=== PATIENT | male | born 1965 | race Caucasian/White ===

== ENCOUNTER → 2016-09-15 | Outpatient (CLI) | payer BC, OTHER ==
[~2016-09-15] MED LIST: FEXO1TAB46 PO; LANS30CA63 PO; LPD600 PO; LSN/2025 PO; METF-384 PO; RIVA1TAB4 PO
[2016-09-15 17:36] LABS: BASO % 0.3 %; BASO ABS # 0.01 K/uL (0-0.2); COMPLETE YES; EOS % 7.3 %; HEMATOCRIT 35.9 % (42-52); IG% 0.3 %; LYMPH % 41.8 %; LYMPH ABS # 1.67 K/uL (1.2-3.4); MEAN CELL VOLUME 86.5 fL (80-100); MEAN CORPUSCULAR HEMOGLOBIN 30.6 pg (25-34); MEAN CORPUSCULAR HGB CONC 35.4 g/dl (32-36); MEAN PLATELET VOLUME 9.3 fL (7.4-10.4); MONO % 9.8 %; NEUT % 40.5 %; PLATELET COUNT 348 K/uL (130-400); RED BLOOD COUNT 4.15 M/uL (4.7-6.1)
[2016-09-16 06:55] LABS: ESTIMATED AVERAGE GLUCOSE 123 mg/dl; HA1C FLAG Normal (Normal)
== END | disposition home or self-care (01) ==
LOC: C.LABBFT 16:44
PROVIDERS: ATTEND Internal Medicine
DX: R73.03 Prediabetes (principal); D64.9 Anemia, unspecified

== ENCOUNTER → 2016-09-19 | Outpatient (CLI) | payer BC ==
[2016-09-23 21:34] LABS: IGA SERUM 211 mg/dL (81-463); TIS TRANS IGA 1 U/mL (<4)
== END | disposition home or self-care (01) ==
LOC: C.LABBFT 12:24
PROVIDERS: ATTEND Internal Medicine
DX: D64.9 Anemia, unspecified (principal)

== ENCOUNTER → 2017-03-24 | Outpatient (CLI) | payer BC ==
[~2017-03-24] MED LIST changes: +METO25TA3 PO
[2017-03-24 12:18] LABS: BASO % 0.5 %; BASO ABS # 0.02 K/uL (0-0.2); COMPLETE YES; EOS % 6.5 %; HEMATOCRIT 36.3 % (42-52); IG% 0.5 %; LYMPH % 42.2 %; LYMPH ABS # 1.68 K/uL (1.2-3.4); MEAN CELL VOLUME 89.6 fL (80-100); MEAN CORPUSCULAR HEMOGLOBIN 31.1 pg (25-34); MEAN CORPUSCULAR HGB CONC 34.7 g/dl (32-36); MEAN PLATELET VOLUME 9.6 fL (7.4-10.4); MONO % 12.3 %; PLATELET COUNT 304 K/uL (130-400); RED BLOOD COUNT 4.05 M/uL (4.7-6.1); WHITE BLOOD COUNT 3.98 K/uL (4.8-10.8)
[2017-03-24 12:28] LABS: URINE APPEARANCE CLEAR (CLEAR); URINE BILIRUBIN NEG (NEG); URINE COLOR YELLOW; URINE NITRITE NEG (NEG); UROBILINOGEN NEG (NEG); ZZUR CULT IF INDIC CLEAN CATCH NO
[2017-03-24 12:34] LABS: MANUAL MICROSCOPIC REQUIRED? NO; REVIEW REQ? NO
[2017-03-24 12:58] LABS: ALT/SGPT 26 U/L (12-78); AST/SGOT 15 U/L (15-37); BLOOD UREA NITROGEN 17 mg/dl (7-18); BUN/CREATININE RATIO 18.7 (10-20); CALCIUM 8.7 mg/dl (8.5-10.1); CARBON DIOXIDE 28 mmol/L (21-32); CHLORIDE 105 mmol/L (98-107); CREATININE 0.93 mg/dl (0.60-1.40); GLUCOSE 102 mg/dl (70-99); SODIUM 140 mmol/L (136-145)
[2017-03-24 13:03] LABS: ALKALINE PHOSPHATASE 38 U/L (45-117); CHOLESTEROL 150 mg/dl (0-200); CHOLESTEROL/HDL RATIO 4.5; HDL CHOLESTEROL 33 mg/dl; LDL CHOLESTEROL CALCULATED 75 mg/dl; TRIGLYCERIDES 208 mg/dl (0-150); VERY LOW DENSITY LIPOPROT CALC 42 mg/dl
[2017-03-24 13:08] LABS: ESTIMATED AVERAGE GLUCOSE 123 mg/dl; HA1C FLAG Normal (Normal)
== END | disposition home or self-care (01) ==
LOC: C.LABBFT 08:11
PROVIDERS: ATTEND Internal Medicine
DX: R73.03 Prediabetes (principal); D64.9 Anemia, unspecified; Z12.5 Encounter for screening for malignant neoplasm of prostate; E78.5 Hyperlipidemia, unspecified; I48.92 Unspecified atrial flutter

== ENCOUNTER → 2017-05-06 | Day surgery (SDC) | payer BC ==
[2017-04-28 09:27] VITALS: BMI 33.0
[~2017-05-06] VITALS: Ht 177.8 cm; Wt 104.5 kg
[~2017-05-06] MED LIST changes: +LIDOCAINE HCL 2% 2 ML VIAL (20MG/ML) ONE; +MIDAZOLAM HCL 1 MG/ML 2ML VIAL ONE; +ONDANSETRON INJ 2 MG/ML 2 ML VIAL ONE; +PROPOFOL IV EMULSION 10 MG/ML 20 ML VIAL IV ONE; +SODIUM CHLORIDE 0.9% 500ML 500 ML IV ONE
[2017-05-06 14:07] VITALS: Ht 177.8 cm; Wt 104.5 kg
--- NOTE | 2017-05-06 14:57 | Endo History and Physical ---
History & Physical Date of Service: May 06, 2017. Chief Complaint: BARRETTS ESOPHAGUS Referring Physician: DR. 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 Past Medical History Diabetes, Arthritis, Reflux, Hypertension, Other Past Surgical History Hx Cardiac Surgery: No Hx Internal Defibrillator: No Hx Pacemaker: No Hx Abdominal Surgery: Yes (UMBILICAL HERNIA REPAIR) Hx of Implantable Prosthesis: No Hx Post-Op Nausea and Vomiting: No Hx Cancer Surgery: No Hx Thoracic Surgery: No Hx Orthopedic: No Hx Urinary Tract Surgery: No Family History Colon CA Social History Smoking Status: Never Smoker Hx Substance Use: No Hx Alcohol Use: No Allergies Coded Allergies: No Known Allergies (Verified , 04/28/17) Current Medications Reported Home Medications Medications Dose Route/Sig Max Daily Dose Days Date Category Xarelto (Rivaroxaban) 20 Mg Tab 20 Mg PO QAM 04/28/17 Reported Toprol-Xl (Metoprolol Succinate) 25 Mg Tabcr 25 Mg PO QAM 04/28/17 Reported Prevacid (Lansoprazole) 30 Mg Cap 30 Mg PO QAM 04/12/14 Reported Gemfibrozil 600 Mg Tab 600 Mg PO BID 04/12/14 Reported Lisinopril/Hctz 20/25 Mg (HCTZ/Lisinopril) 1 Ea Tab 1 Tab PO QAM 04/12/14 Reported Glucophage (Metformin Hcl) 1,000 Mg Tab 1,000 Mg PO Q12 08/09/13 Reported Halley (Fexofenadine Hcl) 180 Mg Tab 180 Mg PO DAILY PRN 08/09/13 Reported Vital Signs Weight (Kilograms): 104.55 Height (Feet): 5 Height (Inches): 10 Date Time Temp Pulse Resp B/P (MAP) Pulse Ox O2 Delivery O2 Flow Rate FiO2 05/06/17 14:09 36.7 60 20 134/76 (95) 97 Room Air Physical Exam General Appearance: WD/WN, no apparent distress Respiratory/Chest: Auscultation: breath sounds normal Cardiovascular: Heart Auscultation: RRR Abdomen: Bowel Sounds: normal Inspection & Palpation: soft, non-distended, no tenderness, guarding & rebound Assessment and Plan Assessment: 51 yo CM who presents for 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 Plan: Proceed with EGD.
--- NOTE | 2017-05-06 15:19 | GI REPORT ---
Procedure Date: 05/06/2017 2:37 PM Procedure: Upper GI endoscopy Indications: Follow-up of Vicente's esophagus Medicines: Sedation Required Anesthesia Staff Assistance, Monitored Anesthesia Care Complications: No immediate complications. Estimated Blood Loss: Estimated blood loss: none. Procedure: Pre-Anesthesia Assessment: - Prior to the procedure, a History and Physical was performed, and patient medications and allergies were reviewed. The patient's tolerance of previous anesthesia was also reviewed. The risks and benefits of the procedure and the sedation options and risks were discussed with the patient. All questions were answered, and informed consent was obtained. Prior Anticoagulants: The patient has taken Xarelto (rivaroxaban), last dose was 3 days prior to procedure. ASA Grade Assessment: III - A patient with severe systemic disease. After reviewing the risks and benefits, the patient was deemed in satisfactory condition to undergo the procedure. After obtaining informed consent, the endoscope was passed under direct vision. Throughout the procedure, the patient's blood pressure, pulse, and oxygen saturations were monitored continuously. The scope was introduced through the mouth, and advanced to the second part of duodenum. The upper GI endoscopy was accomplished without difficulty. The patient tolerated the procedure well. Findings: There were esophageal mucosal changes consistent with short-segment Vicente's esophagus present in the lower third of the esophagus. The maximum longitudinal extent of these mucosal changes was 1 cm in length. Mucosa was biopsied with a cold forceps for histology. One specimen bottle was sent to pathology. A small hiatus hernia was present. The examined duodenum was normal. Impression: - Esophageal mucosal changes consistent with short-segment Vicente's esophagus. Biopsied. - Small hiatus hernia. - Normal examined duodenum. Recommendation: - Resume previous diet. - Continue present medications. - Await pathology results. - Return to primary care physician as previously scheduled. Alvarado Dang DO 05/06/2017 3:19:09 PM This report has been signed electronically. Note Initiated On: 05/06/2017 2:37 PM I attest to the content of the Intraoperative Record and orders documented therein, exceptions below
--- NOTE | 2017-05-06 15:20 | Discharge Instructions ---
Endoscopy Patient Instructions Date / Procedure(s) Performed May 06, 2017. EGD Allergy Information Coded Allergies: No Known Allergies (Verified , 04/28/17) Discharge Date / Findings May 06, 2017. Vicente's esophagus Hiatal hernia Medication Instructions Stopped Medication(s): MET NISREENFORMJYOTSNA OK to resume all medications today as prescribed Reported Home Medications Medications Dose Route/Sig Max Daily Dose Days Date Category Xarelto (Rivaroxaban) 20 Mg Tab 20 Mg PO QAM 04/28/17 Reported Toprol-Xl (Metoprolol Succinate) 25 Mg Tabcr 25 Mg PO QAM 04/28/17 Reported Prevacid (Lansoprazole) 30 Mg Cap 30 Mg PO QAM 04/12/14 Reported Gemfibrozil 600 Mg Tab 600 Mg PO BID 04/12/14 Reported Lisinopril/Hctz 20/25 Mg (HCTZ/Lisinopril) 1 Ea Tab 1 Tab PO QAM 04/12/14 Reported Glucophage (Metformin Hcl) 1,000 Mg Tab 1,000 Mg PO Q12 08/09/13 Reported Halley (Fexofenadine Hcl) 180 Mg Tab 180 Mg PO DAILY PRN 08/09/13 Reported Provider Instructions Activity Restrictions - No exercising or heavy lifting for 24 hours. - Do not drink alcohol the day of the procedure. - Do not drive a car or operate machinery until the day after the procedure. - Do not make any important decisions or sign important papers in 24 hours after the procedure. Following Day: - Return to full activity which may include returning to work/school. Diet Start your diet with liquids and light foods (jello, soup, juice, toast). Then eat your usual diet if not nauseated. Treatment For Common After Affects For mild abdominal pain, bloating, or excessive gas: - Rest - Eat lightly - Lie on right side Follow-Up Information Follow-up with DR. GILMAR LAZO as scheduled Anesthesia Information What You Should Know You have had a procedure that required some medicine to reduce anxiety and discomfort. This treatment is called moderate sedation. After receiving the treatment, you may be sleepy, but you will be able to breathe on your own. The effects of the treatment may last for several hours. Follow these instructions along with Activity/Diet recommendations noted above: * Do NOT do anything where dizziness or clumsiness would be dangerous. * Rest quietly at home today, then you can be up and about tomorrow. * Have a responsible person stay with you the rest of today. * You may have had an I.V. today. If so, you may take the dressing off later today. Recommendations Call your doctor if: * Trouble breathing * Continuous vomiting for more than 24 hours * Temperature above 101 degrees * Severe abdominal pain or bloating * Pain not relieved by pain medicine ordered * There is increased drainage or redness from any incision * A large amount of rectal bleeding greater than 2-3 tablespoons. (If you had a polyp/s removed or have hemorrhoids, a small amount of blood - from the rectum is to be expected.) * You have any unanswered questions or concerns. IN THE EVENT OF A SERIOUS EMERGENCY, GO TO THE NEAREST EMERGENCY ROOM Your discharge instructions were prepared by provider Alvarado Dang. Patient Instructions Signature Page Reynold White Patient (or Guardian) Signature/Date: I have read and understand the instructions given to me by my caregivers. Caregiver/RN/Doctor Signature/Date: The above-named patient and/or guardian has received patient instructions on this date. + Original Patient Signature Page (only) stays with chart. Please make copy for patient.
[2017-05-06 15:50] VITALS: BP 122/69; PULSE 63; O2SAT 94
--- NOTE | 2017-05-06 15:53 | Anesthesiology Progress Note ---
Anesthesia Post Op Note Date & Time May 06, 2017 at 15:52 Vital Signs Pain Intensity: 0 Vital Signs Past 12 Hours Date Time Temp Pulse Resp B/P (MAP) Pulse Ox O2 Delivery O2 Flow Rate FiO2 05/06/17 15:50 63 20 122/69 (86) 94 Room Air 05/06/17 15:39 63 20 143/68 (93) 94 Room Air 05/06/17 15:28 67 20 117/70 (86) 94 Room Air 05/06/17 14:09 36.7 60 20 134/76 (95) 97 Room Air Notes Mental Status: alert / awake / arousable, participated in evaluation Pt Amnestic to Procedure: Yes Nausea / Vomiting: adequately controlled Pain: adequately controlled Airway Patency, RR, SpO2: stable & adequate BP & HR: stable & adequate Hydration State: stable & adequate Anesthetic Complications: no major complications apparent
== END | disposition home or self-care (01) ==
LOC: C.GI 13:27
PROVIDERS: ATTEND Internal Medicine
DX: K22.70 Barrett's esophagus without dysplasia (principal); K44.9 Diaphragmatic hernia without obstruction or gangrene; K21.9 Gastro-esophageal reflux disease without esophagitis; I10 Essential (primary) hypertension; E11.9 Type 2 diabetes mellitus without complications; Z80.0 Family history of malignant neoplasm of digestive organs; Z79.01 Long term (current) use of anticoagulants; Z79.84 Long term (current) use of oral hypoglycemic drugs; Z79.899 Other long term (current) drug therapy

== ENCOUNTER → 2017-09-28 | Outpatient (CLI) | payer OTHER ==
[~2017-09-28] MED LIST changes: -LIDOCAINE HCL 2% 2 ML VIAL (20MG/ML) ONE; -MIDAZOLAM HCL 1 MG/ML 2ML VIAL ONE; -ONDANSETRON INJ 2 MG/ML 2 ML VIAL ONE; -PROPOFOL IV EMULSION 10 MG/ML 20 ML VIAL IV ONE; -SODIUM CHLORIDE 0.9% 500ML 500 ML IV ONE
[2017-09-28 12:27] LABS: BASO % 0.8 %; BASO ABS # 0.03 K/uL (0-0.2); EOS % 4.1 %; EOS ABS # 0.16 K/uL (0-0.5); HEMATOCRIT 38.8 % (42-52); HEMOGLOBIN 13.5 g/dL (14.0-18.0); IG# 0.01 K/uL (0.00-0.02); LYMPH % 41.5 %; LYMPH ABS # 1.62 K/uL (1.2-3.4); MEAN CELL VOLUME 87.4 fL (80-100); MEAN CORPUSCULAR HEMOGLOBIN 30.4 pg (25-34); MEAN CORPUSCULAR HGB CONC 34.8 g/dl (32-36); MEAN PLATELET VOLUME 9.5 fL (7.4-10.4); MONO ABS # 0.43 K/uL (0.11-0.59); NEUT % 42.3 %; NEUT ABS # 1.65 K/uL (1.4-6.5); PLATELET COUNT 351 K/uL (130-400); RED CELL DISTRIBUTION WIDTH CV 12.3 % (11.5-14.5); RED CELL DISTRIBUTION WIDTH SD 39.7 fL (36.4-46.3)
[2017-09-28 13:14] LABS: HEMOGLOBIN A1C 6.3 % (4.5-5.6)
== END | disposition home or self-care (01) ==
LOC: C.LABBFT 09:43
PROVIDERS: ATTEND Internal Medicine
DX: D72.819 Decreased white blood cell count, unspecified (principal); R73.03 Prediabetes

== ENCOUNTER 2021-01-23 08:37 | Observation (INO) ==
--- NOTE | 2021-01-23 09:08 | Emergency Department Note ---
ED Visit Note This patient was seen in concert with Dr. Man and we discussed and agreed upon the history, physical, assessment and plan. See attending's note for details. Resident Activity Tracking Resident Involvement: Resident Care Provided Care Provided: Adult ED
[2021-01-23] MEDS ORDERED: SODIUM CHLORIDE 0.9% 500 ML IV STA (09:11)
[2021-01-23 09:14] LABS: Basophils # (auto) 0.02 K/uL (0-0.2); Basophils % (auto) 0.3 %; Eosinophils # (auto) 0.19 K/uL (0-0.5); Eosinophils % (auto) 2.7 %; Hematocrit (blood only) 38.2 % (42-52); Immature Granulocytes # (auto) 0.02 K/uL (0.00-0.02); Immature Granulocytes % (auto) 0.3 %; Lymphocytes # (auto) 1.74 K/uL (1.2-3.4); Lymphocytes % (auto) 24.8 %; Mean Corpuscular Hemoglobin 30.4 pg (25-34); Mean Corpuscular Volume 89.5 fL (80-100); Mean Platelet Volume 9.1 fL (7.4-10.4); Monocytes # (auto) 0.76 K/uL (0.11-0.59); Monocytes % (auto) 10.8 %; Neutrophils % (auto) 61.1 %; Platelet Count 240 K/uL (130-400); RDW Coefficient of Variation 13.2 % (11.5-14.5); RDW Standard Deviation 42.5 fL (36.4-46.3); Red Blood Count 4.27 M/uL (4.7-6.1); White Blood Count 7.03 K/uL (4.8-10.8)
[2021-01-23 09:33] LABS: Albumin Level 4.1 gm/dl (3.4-5.0); BUN Creatinine Ratio 20.7 (10-20); Calcium 8.8 mg/dl (8.5-10.1); Creatinine Clr Calc Pharmacy 106.4 ml/min; Est GFR (African American) 102.6 ml/min; Est GFR (Non-African American) 88.5 ml/min; Magnesium 1.9 mg/dl (1.8-2.4); Potassium 3.5 mmol/L (3.5-5.1)
[2021-01-23] MEDS ORDERED: POTASSIUM CHLORIDE CRTAB 20 MEQ TABCR PO STA (09:37)
--- NOTE | 2021-01-23 09:37 | XRay Report ---
XR chest 1V portable HISTORY: 55 years-old Male Chest Pain acute atypical chest pain COMPARISON: Chest radiograph 12/13/2019, chest CT 05/05/2016 TECHNIQUE: Portable AP view of the chest FINDINGS: Cardiomediastinal and hilar silhouettes are within normal limits. No pneumothorax, pleural effusion, airspace consolidation or overt pulmonary edema. Degenerative changes of the shoulders and spine. IMPRESSION: No acute process. ACT 112: Negative or not required by law. The above report was generated using voice recognition software. It may contain grammatical, syntax o r spelling errors. Electronically signed by: Reza Caro M.D. 01/23/2021 9:36 AM
[2021-01-23 09:55] LABS: Albumin Globulin Ratio 1.1 (0.9-2); Bilirubin,Total 0.5 mg/dl (0.2-1); Globulin 3.7 gm/dl (2.5-4.0); Thyroid Stimulating Hormone 5.36 uIu/ml (0.300-4.500); Total Protein 7.8 gm/dl (6.4-8.2); Troponin I 0.051 ng/ml (0-0.045)
--- NOTE | 2021-01-23 10:28 | Emergency Department Note ---
History of Present Illness General Chief complaint: Chest Pain Stated complaint: CHEST PAIN,HEADAHCE,NAUSEA,HX OF AFIB Time Seen by Provider: 01/23/21 08:52 Source: patient Mode of arrival: ambulatory Limitations: no limitations History of Present Illness Provider complaint: Chest pain Maximum Pain Intensity: 4 This is a 55-year-old male who presents to the ED with a chief complaint of what he believes was a episode of atrial fibrillation last night while he was at work. The patient has a history of paroxysmal atrial flutter. He is on Xarelto chronically. The patient states that last night he was at work and he felt dizzy. He states that his heart was pounding and racing. He felt a little short of breath and chest pain at that time. The patient states that he was mopping a floor at that time but that occurred. He sat down and rested. He states that the symptoms lasted for about 2 hours and then resolved. The patient states that he felt a little dizzy and nauseated this morning when he awoke. He states that he had to fix the tire of his 's car because she had a flat tire and while he was doing this he developed some chest discomfort and nausea. He decided to come in for evaluation. This is since resolved. Home Medications Medication Instructions Recorded Confirmed Type fexofenadine 180 mg tablet 180 mg PO DAILY PRN #90 tab 02/10/19 01/23/21 History rivaroxaban 20 mg tablet 20 mg PO QAM #90 tab 04/23/20 01/23/21 Rx blood sugar diagnostic #100 ea 08/28/20 01/23/21 Rx blood-glucose meter #1 ea 08/28/20 01/23/21 Rx dapagliflozin 10 mg tablet 10 mg PO DAILY #30 tab 08/28/20 01/23/21 Rx lancets 30 gauge #100 ea 08/28/20 01/23/21 Rx rosuvastatin 20 mg tablet 20 mg PO DAILY #30 tab 08/28/20 01/23/21 Rx metformin 1,000 mg tablet 1,000 mg PO BID #180 tab 09/10/20 01/23/21 Rx metoprolol succinate 25 mg 25 mg PO QAM #90 tab 09/10/20 01/23/21 Rx tablet,extended release 24 hr lisinopril 20 1 tab PO QAM #90 tab 10/18/20 01/23/21 Rx mg-hydrochlorothiazide 25 mg tablet albuterol sulfate 90 mcg/actuation 2 puff INH QID PRN #8.5 g 11/12/20 01/23/21 Rx aerosol inhaler tamsulosin 0.4 mg capsule 0.4 mg PO QAM #90 cap 11/14/20 01/23/21 Rx lansoprazole 30 mg capsule,delayed 30 mg PO QAM #90 cap 11/16/20 01/23/21 Rx release icosapent ethyl 1 gram capsule 2 g PO BID #120 cap 12/05/20 01/23/21 Rx Allergies Allergy/AdvReac Type Severity Reaction Status Date / Time No Known Allergies Allergy Unknown Verified 08/28/20 10:01 Past Med/Surg History Medical History Anticoagulant long-term use Atrial flutter F/U DR DELGADO Barretts esophagus Diabetes Gastroesophageal reflux disease Hiatal hernia Hyperlipidemia Hypertension Leukopenia Mild sleep apnea CPAP Pre-diabetes Temporomandibular joint disorder CLICKS ONE SIDE Surgical History H/O umbilical hernia repair H/O vasectomy History of colonoscopy History of esophagogastroduodenoscopy (EGD) History of myringotomy History of tonsillectomy History of wisdom tooth extraction Family History Father Prostate cancer Colorectal cancer Uncle Prostate cancer Myocardial infarction Colorectal cancer Brother Myocardial infarction Hx of CABG Mother Healthy adult Grandmother (Paternal) Family history of diabetes mellitus Other No family history of adverse response to anesthesia Denies family history of Ovarian cancer Coronary heart disease Breast cancer Social History Smoking Status: Heavy tobacco smoker Tobacco Type: Smokeless Tobacco (Dip or Chew) Second Hand Exposure: Yes (ON OCC); Hx Alcohol Use: Yes Alcohol type: beer Alcohol Intake Frequency Comment: Occasional social alcohol. 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 Feels Safe at Home: Yes Childhood Exposure to Second-Hand Smoke: No caffeine: Yes Dental Care, Regularly: Yes Physical Activity Frequency: 1-2 Times per Week Seatbelt Use: always Sunscreen Use: Yes Assistive Devices: CPAP and Glasses Review of Systems A total of 10 systems reviewed and were otherwise negative Physical Exam Vital Signs Vital Signs - 24 hr 01/23/21 08:40 01/23/21 08:53 01/23/21 08:58 Temperature 36.5 C Temperature Source Temporal Artery Scan Pulse Rate 81 79 75 Respiratory Rate 20 18 25 H Blood Pressure 127/91 120/77 Blood Pressure Mean 103 91 Blood Pressure Position Sitting Pulse Oximetry 98 Oxygen Delivery Method Room Air Sepsis Recent Fever Within 48 Hours No Sepsis New/Unexplained Change in Mental Status N/A Sepsis Action Taken by Nursing No Action Required 01/23/21 09:00 01/23/21 09:01 01/23/21 09:30 Temperature Temperature Source Pulse Rate 77 75 73 Respiratory Rate 15 20 19 Blood Pressure 137/87 112/86 Blood Pressure Mean 103 94 Blood Pressure Position Pulse Oximetry Oxygen Delivery Method Sepsis Recent Fever Within 48 Hours Sepsis New/Unexplained Change in Mental Status Sepsis Action Taken by Nursing CONSTITUTIONAL/VITAL SIGNS: Reviewed / noted above. GENERAL: Non-toxic in appearance. INTEGUMENTARY: Warm, dry, and [place]. HEAD: Normocephalic. EYES: without scleral icterus or trauma. ENT/OROPHARYNX: clear and moist. LYMPHADENOPATHY/NECK: Is supple without lymphadenopathy or meningismus. RESPIRATORY: Lungs clear and equal. CARDIOVASCULAR: Regular rate and rhythm. GI/ABDOMEN: Soft and nontender. No organomegaly or pulsatile mass. No rebound or guarding. Normal bowel sounds. EXTREMITIES: Warm and well perfused. BACK: No CVA tenderness. NEUROLOGICAL: Intact without focal deficits. PSYCHIATRIC: normal affect. MUSCULOSKELETAL: Normally developed with good muscle tone. TRIAGE NURSING DOCUMENTATION REVIEWED. Course Administered Medications Discontinued Medications Sodium Chloride (Nss) 500 mls @ 999 mls/hr IV .Q31M STA Stop: 01/23/21 09:41 Last Admin: 01/23/21 10:11 Dose: 999 mls/hr Documented by: [id number] Potassium Chloride (Potassium Chloride Crtab 20 Meq Tabcr) 40 meq PO NOW STA Stop: 07/07/21 09:38 Last Admin: 01/23/21 10:08 Dose: 40 meq Documented by: [id number] Medical Decision Making Differential Diagnosis The differential that was considered includes acute myocardial infarction, acute coronary syndrome, myocarditis, pericarditis, pericardial effusions /tamponade, esophageal perforation, thoracic aortic dissection, pulmonary embolism, pneumonia, pneumothorax, pancreatitis, shingles, acute cholecystitis, perforated abdominal viscus. Medical Records Attestation: I reviewed the patient's medical records. Home Medications Current Medication List: was personally reviewed by me Laboratory Data Attestation: I reviewed the patient's lab results. Result diagrams: 01/23/21 09:00 01/23/21 09:00 Lab Results 01/23/21 01/23/21 Range/Units 09:00 09:00 WBC 7.03 (4.8-10.8) K/uL RBC 4.27 L (4.7-6.1) M/uL Hgb 13.0 L (14.0-18.0) g/dL Hct 38.2 L (42-52) % MCV 89.5 (80-100) fL MCH 30.4 (25-34) pg MCHC 34.0 (32-36) g/dL RDW Std Deviation 42.5 (36.4-46.3) fL RDW Coeff of Bhanu 13.2 (11.5-14.5) % Plt Count 240 (130-400) K/uL MPV 9.1 (7.4-10.4) fL Immature Gran % (Auto) 0.3 % Neut % (Auto) 61.1 % Lymph % (Auto) 24.8 % [place] % (Auto) 10.8 % Eos % (Auto) 2.7 % Baso % (Auto) 0.3 % Neut # (Auto) 4.30 (1.4-6.5) K/uL Lymph # (Auto) 1.74 (1.2-3.4) K/uL [place] # (Auto) 0.76 H (0.11-0.59) K/uL Eos # (Auto) 0.19 (0-0.5) K/uL Baso # (Auto) 0.02 (0-0.2) K/uL Immature Gran # (Auto) 0.02 (0.00-0.02) K/uL Sodium 133 L (136-145) mmol/L Potassium 3.5 (3.5-5.1) mmol/L Chloride 99 (98-107) mmol/L Carbon Dioxide 27 (21-32) mmol/L Anion Gap 7.0 (3-11) BUN 20 H (7-18) mg/dl Creatinine 0.95 (0.6-1.4) mg/dl Est Cr Clr Drug Dosing 106.4 ml/min Est GFR ( Amer) 102.6 ml/min Est GFR (Non-Af Amer) 88.5 ml/min BUN/Creatinine Ratio 20.7 H (10-20) Glucose 114 H (70-99) mg/dl Calcium 8.8 (8.5-10.1) mg/dl Magnesium 1.9 (1.8-2.4) mg/dl Total Bilirubin 0.5 (0.2-1) mg/dl AST 31 (15-37) U/L ALT 60 (12-78) U/L Alkaline Phosphatase 45 (45-117) U/L Troponin I 0.051 H* (0-0.045) ng/ml Total Protein 7.8 (6.4-8.2) gm/dl Albumin 4.1 (3.4-5.0) gm/dl Globulin 3.7 (2.5-4.0) gm/dl Albumin/Globulin Ratio 1.1 (0.9-2) Lipase 146 (73-393) U/L TSH 5.360 H (0.300-4.500) uIu/ml Imaging Data Radiologist's Impression: Chest X-Ray 01/23/21 09:11 XR chest 1V portable HISTORY: 55 years-old Male Chest Pain acute atypical chest pain COMPARISON: Chest radiograph 12/13/2019, chest CT 05/05/2016 TECHNIQUE: Portable AP view of the chest FINDINGS: Cardiomediastinal and hilar silhouettes are within normal limits. No pneumothorax, pleural effusion, airspace consolidation or overt pulmonary edema. Degenerative changes of the shoulders and spine. IMPRESSION: No acute process. ACT 112: Negative or not required by law. The above report was generated using voice recognition software. It may contain grammatical, syntax or spelling errors. Electronically signed by: Reza Caro M.D. 01/23/2021 9:36 AM ECG Data Attestation: I personally reviewed and interpreted this ECG as follows: Indication: + chest pain Rate (beats per minute): 74 ECG Intervals/blocks: + Normal QT-c ECG ST segments: no ST elevation ECG Findings: no PVCs MDM Narrative This is a 55-year-old male who presents with some chest pain that started this morning while he was changing a tire. He also reports that he had an episode of A. fib last night that lasted for couple of hours. He states that his heart was pounding and racing last night. His CBC is unremarkable. His troponin is elevated at 0.051. EKG shows a normal sinus rhythm at a rate of 74 without ischemic changes. Chemistry panel was unremarkable. Chest x-ray did not show acute process. The patient was told the results of the test. He is chronically on Xarelto. He will require further evaluation and care in the hospital. Impression & Plan Non-ST elevation (NSTEMI) myocardial infarction, Episodic atrial fibrillation Discharge Plan Visit Data Chief Complaint: Chest Pain Stated Complaint: CHEST PAIN,HEADAHCE,NAUSEA,HX OF AFIB ED Provider: Jace Nguyen ED Midlevel Provider: Selin Rawls Discharge Problem: Non-ST elevation (NSTEMI) myocardial infarction, Episodic atrial fibrillation Patient Disposition: Being Evaluated by Hospitalist Forms Stand Alone Forms: My [facility] Prescriptions Prescriptions: No Action Xarelto 20 mg tablet 20 mg PO QAM Qty: 90 RF: 3 (DME) OneTouch Verio test strips Strip See Rx Instructions .ROUTE .MEDSUPPLY Qty: 100 RF: 3 (DME) lancets [OneTouch Delica Plus Lancet] 30 gauge misc See Rx Instructions .ROUTE .MEDSUPPLY Qty: 100 RF: 3 metformin 1,000 mg tablet 1,000 mg PO BID Qty: 180 RF: 3 metoprolol succinate 25 mg tablet extended release 24 hr 25 mg PO QAM Qty: 90 RF: 3 lisinopril-hydrochlorothiazide 20-25 mg tablet 1 tab PO QAM Qty: 90 RF: 3 albuterol sulfate [Proventil HFA] 90 mcg/actuation HFA aerosol inhaler 2 puff INH QID PRN (Reason: shortness of breath or wheezing) Qty: 8.5 RF: 1 tamsulosin 0.4 mg capsule 0.4 mg PO QAM Qty: 90 RF: 0 lansoprazole 30 mg capsule,delayed release(DR/EC) 30 mg PO QAM Qty: 90 RF: 3 icosapent ethyl [Vascepa] 1 gram capsule 2 g PO BID Qty: 120 RF: 11 fexofenadine 180 mg tablet 180 mg PO DAILY PRN (Reason: Allergy Symptoms) Qty: 90 RF: 0 Farxiga 10 mg tablet 10 mg PO DAILY Qty: 30 RF: 11 (DME) blood-glucose meter [L-3 GCSuch Verio Flex meter] Misc See Rx Instructions .ROUTE .MEDSUPPLY Qty: 1 RF: 0 rosuvastatin 20 mg tablet 20 mg PO DAILY Qty: 30 RF: 11 Referrals Referrals: Luis Holland MD [Primary Care Provider] -
--- NOTE | 2021-01-23 10:59 | History & Physical Report ---
Date of Service January 23, 2021 Assessment & Plan (1) Non-ST elevation (NSTEMI) myocardial infarction: 55 y/o M Hx HTN, HLD, DM II, GERD, BPH, CAROLINE, PAF. 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 He believed this to be an episode of atrial flutter which he states he has not had since 2014. He waited it out and it returned home. This AM he was changing a tire on his car and developed CP and nausea, but without palpitations. He presented to the ER therefore. On arrival, he is in a sinus rhythm. There was no evidence of ischemia on his EKG. His initial troponin did however return +. He is asymptomatic on admission and labs are otherwise at baseline. 1) NSTEMI - may be due to demand as he describes a 1-2 hour episode of fib or flutter accompanying his CP he prior rosanne, although he did not have palpitations with CP this AM. We have ordered an echo and requested a cardiology consult. Serial trops pending. ASA, statin provided. He is anticoagulated with Xarelto but we will hold additional dosing as he may need Heparin or Lovenox for a cath. I would note that he is prescribed albuterol and fexofenadine and would try to hold off on either for now. 2) Atrial flutter or fib - sinus on arrival - anticoagulated. EKG is borderline tachy and pressure is normal so I have increased his beta asya to BID pending a cardiology consult. 3) DM - sliding scale 4) HTN/HLD - Cont metoprolol, lisinopril/HCTZ, Crestor 5) BPH - cont Flomax 6) CAROLINE - CPAP 7) GERD - PPi Full code Xarelto prophylaxis Total time for this admit including review of labs, meds, EKG, records - discussion with pt and ER attending - 36 min (2) Dyslipidemia: (3) Paroxysmal atrial flutter: (4) Diabetes: (5) Hyperlipidemia: (6) Hypertension: (7) Mild sleep apnea: Admission and Anticipated Discharge Date Admission Date: 01/23/21 Anticipated date of discharge: 01/24/21 History of Present Illness Chief Complaint: Chest pain and palpitations Primary Care Provider: Scooter Holland MD 55 y/o M Hx HTN, HLD, DM II, GERD, BPH, CAROLINE, PAF. 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 He believed this to be an episode of atrial flutter which he states he has not had since 2014. He waited it out and it returned home. This AM he was changing a tire on his car and developed CP and nausea, but without palpitations. He presented to the ER therefore. On arrival, he is in a sinus rhythm. There was no evidence of ischemia on his EKG. His initial troponin did however return +. He is asymptomatic on admission and labs are otherwise at baseline. PMH: 1) HTN 2) HLD 3) DM II 4) GERD 5) BPH 6) Mild anemia - baseline Hb 13 7) Paroxysmal flutter - takes Xarelto 8) Seasonal airway reactive disease 9) Obese 10) CAROLINE - CPAP Surgical: No recent surgery Social: Occasional ETOH, chews tobacco. 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 Family: Father alive - history of colon and prostate CA, history of CAD Mother alive - healthy Allergies Allergy/AdvReac Type Severity Reaction Status Date / Time No Known Allergies Allergy Unknown Verified 08/28/20 10:01 Home Medications Medication Instructions Recorded Confirmed Type fexofenadine 180 mg tablet 180 mg PO DAILY PRN #90 tab 02/10/19 01/23/21 History rivaroxaban 20 mg tablet 20 mg PO QAM #90 tab 04/23/20 01/23/21 Rx blood sugar diagnostic #100 ea 08/28/20 01/23/21 Rx blood-glucose meter #1 ea 08/28/20 01/23/21 Rx dapagliflozin 10 mg tablet 10 mg PO DAILY #30 tab 08/28/20 01/23/21 Rx lancets 30 gauge #100 ea 08/28/20 01/23/21 Rx rosuvastatin 20 mg tablet 20 mg PO DAILY #30 tab 08/28/20 01/23/21 Rx metformin 1,000 mg tablet 1,000 mg PO BID #180 tab 09/10/20 01/23/21 Rx metoprolol succinate 25 mg 25 mg PO QAM #90 tab 09/10/20 01/23/21 Rx tablet,extended release 24 hr lisinopril 20 1 tab PO QAM #90 tab 10/18/20 01/23/21 Rx mg-hydrochlorothiazide 25 mg tablet albuterol sulfate 90 mcg/actuation 2 puff INH QID PRN #8.5 g 11/12/20 01/23/21 Rx aerosol inhaler tamsulosin 0.4 mg capsule 0.4 mg PO QAM #90 cap 11/14/20 01/23/21 Rx lansoprazole 30 mg capsule,delayed 30 mg PO QAM #90 cap 11/16/20 01/23/21 Rx release icosapent ethyl 1 gram capsule 2 g PO BID #120 cap 12/05/20 01/23/21 Rx Past Med/Surg History Medical History Anticoagulant long-term use Atrial flutter F/U DR DELGADO Barretts esophagus Diabetes Gastroesophageal reflux disease Hiatal hernia Hyperlipidemia Hypertension Leukopenia Mild sleep apnea CPAP Pre-diabetes Temporomandibular joint disorder CLICKS ONE SIDE Surgical History H/O umbilical hernia repair H/O vasectomy History of colonoscopy History of esophagogastroduodenoscopy (EGD) History of myringotomy History of tonsillectomy History of wisdom tooth extraction Family History Father Prostate cancer Colorectal cancer Uncle Prostate cancer Myocardial infarction Colorectal cancer Brother Myocardial infarction Hx of CABG Mother Healthy adult Grandmother (Paternal) Family history of diabetes mellitus Other No family history of adverse response to anesthesia Denies family history of Ovarian cancer Coronary heart disease Breast cancer Social History Smoking Status: Heavy tobacco smoker Tobacco Type: Smokeless Tobacco (Dip or Chew) Second Hand Exposure: Yes (ON OCC); Hx Alcohol Use: Yes Alcohol type: beer Alcohol Intake Frequency Comment: Occasional social alcohol. 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 Feels Safe at Home: Yes Childhood Exposure to Second-Hand Smoke: No caffeine: Yes Dental Care, Regularly: Yes Physical Activity Frequency: 1-2 Times per Week Seatbelt Use: always Sunscreen Use: Yes Assistive Devices: CPAP and Glasses Review of Systems Review of Systems: Gen: Denies fevers, night sweats, rigors, fatigue, malaise, weight loss/gain ENT: Denies congestion, throat pain, hearing loss Eyes: Denies acute visual changes CV: + CP , palpitations Pulmonary: + SOB with initial CP/palpitations GI: Denies N/V, diarrhea, constipation Neuro: Denies acute or unilateral weakness, acute gait impairment, headache or acute visual changes - lightheaded with palpitations Musculoskeletal: Denies joint pain, inflammation Endocrine: Denies polydipsia, polyuria Skin: Denies acute rashes or ulcers Physical Exam Physical Exam: General: Pleasant, middle-aged M, AAO x 3, no distress ENT: No erythema or exudates, no thrush Eyes: ALESSIA, EOMI Head and neck: Normocephalic, atraumatic, No JVD, neck is supple. Chest/heart: Nontender, S1,2, RRR, no murmurs, no gallops Lungs: CTAB, no wheezing or crackles Abdomen: Nontender, nondistended, BS+ Neuro: AAO x 3, speech is clear, no unilateral weakness or loss of sensation, coordination intact Musculoskeletal: No joint inflammation, muscle tenderness, FROM Skin: No acute rashes or ulcers Extremities: No clubbing, cyanosis, edema Results & Data Results & Data ([facility]) Vital Signs (Past 12 Hours) Vital Signs Temp Pulse Resp BP Pulse Ox 01/23/21 10:30 72 18 123/80 01/23/21 10:00 71 13 139/85 01/23/21 09:30 73 19 112/86 01/23/21 09:01 75 20 01/23/21 09:00 77 15 137/87 01/23/21 08:58 75 25 H 01/23/21 08:53 79 18 120/77 01/23/21 08:40 97.7 F 81 20 127/91 98 Code Status & VTE Plan VTE Prophylaxis Plan VTE Prophylaxis will be ordered: Yes PG Care Time/CCT Total # of Minutes Spent Total Time Spent with Patient: Total time for this admit including review of labs, meds, imaging, records - discussion with pt and ER attending 36 min Coding Level of Care Code 13651 OBS Care - Level 3 Diagnoses Non-ST elevation (NSTEMI) myocardial infarction I21.4 Dyslipidemia E78.5 Paroxysmal atrial flutter I48.92 Diabetes E11.9 Hyperlipidemia E78.5 Hypertension I10 Mild sleep apnea G47.30
[2021-01-23] MEDS ORDERED: GLUCOSE 10 TABS/TUBE PO PRN (13:47)
[2021-01-23] MEDS ORDERED: ACETAMINOPHEN 325 MG TAB PO PRN (13:47)
[2021-01-23] MEDS ORDERED: GLUCAGON FOR INJ 1 MG VIAL SQ PRN (13:47)
[2021-01-23] MEDS ORDERED: DEXTROSE 50% 50 ML SYRINGE IV PRN (13:47)
[2021-01-23] MEDS ORDERED: GLUCOSE 40% GEL 15 GM TUBE PO PRN (13:47)
[2021-01-23] MEDS ORDERED: ONDANSETRON INJ 2 MG/ML 2 ML VIAL IV PRN (13:47)
[2021-01-23] MEDS ORDERED: NITROGLYCERIN SL 0.4 MG/TAB TAB SL PRN (13:47)
--- NOTE | 2021-01-23 20:27 | Cardiology Consultation ---
Date of Consultation January 23, 2021 Assessment & Plan (1) Chest pain: (2) Paroxysmal atrial flutter: (3) Elevated troponin: (4) Palpitations: (5) Hypertension: ASSESSMENT/PLAN: 1. Chest pain: Had chest pain during palpitations but once again this morning. With decreased exercise tolerance recently, and risk factors for CAD, would recommend noninvasive ischemic evaluation. Nuclear stress ordered for tomorrow given technically difficult echo images at rest. His troponins were not significantly elevated and very slight initial elevation may have been due to tachyarrhythmia the night before. If troponins become more elevated or more concerning symptoms overnight, may consider cardiac catheterization. 2. Paroxysmal atrial flutter: 1 documented episode in 2014. Unclear if his most recent palpitations represented atrial flutter although felt similar to him. Continue beta-asya. Hospitalist service has increased metoprolol succinate to a total of 50 mg daily which caused fatigue in the past but if tolerated now, can be continued. On anticoagulation for stroke risk reduction. If no arrhythmia while hospitalized, consider loop recorder. If known to have recurrent atrial flutter, could consider ablation which may allow for discontinuation of anticoagulation long-term. 3. Elevated troponin: Very minimally elevated troponin on presentation which has since trended downward. May have been due to possible tachyarrhythmia the evening before. Plan as above. 4. Palpitations: Will consider loop recorder as above. Palpitations in the past have correlated with atrial flutter and during event monitors as an outpatient, PACs and even normal sinus rhythm in 2015. 5. Hypertension: Blood pressure acceptable. 6. Disposition: Cardiology will continue to follow. Thank you for allowing me to participate in the care of your patient. Please call for any other questions or concerns. Sincerely, Jarret Siegel M.D. History of Present Illness Reason for Consultation: Chest pain and abnormal troponin Requesting Physician: Edmundo Olson MD Attending Physician: Edmundo Olson MD History of Present Illness Mr. White is a pleasant 55-year-old gentleman with a history significant for paroxysmal atrial flutter, hypertension, dyslipidemia, and type 2 diabetes. He also has sleep apnea on CPAP QHS. He presented to [facility] on 01/02/2015 with paroxysmal atrial flutter with rapid ventricular response at 140 beats per min. He spontaneously converted while in the emergency department. His symptoms consisted of palpitations and sharp nonradiating chest discomfort. Chest pain lasted for approximately 1 hr and he had negative troponin levels. During his hospitalization metoprolol succinate was increased from 25 mg to 50 mg and he was discharged on anticoagulation in the form of Xarelto. Metoprolol was later decreased to 25 mg daily as it was tolerated better. He has had the following studies/procedures: 1. Echo 01/02/2015: Normal LV size and systolic function. EF 65%. Normal wall motion. Moderate to severe LVH. Mild left atrial dilation. Sclerotic aortic valve. 2. Stress echo 04/13/2015: Negative for ischemia at 88% MPHR. Negative ECG. Appropriate blood pressure response. No chest pain. 9 minutes on [place] protocol. 3. Event monitor 03/03/2015 to 04/01/2015: Sinus rhythm with occasional PVCs and PACs. No arrhythmia. Heart racing occurred during normal sinus rhythm. No clear correlation of symptoms with ectopy. 4. Event monitor 02/09/2020 to 02/05 04/08: Sinus rhythm average heart rate 78 beats per minute. PACs and PVCs. No arrhythmia. Heart racing correlated with PACs. He was admitted on 01/23/2021 with chest discomfort. At approximately 10:00 p.m. 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 It was accompanied by shortness of breath and inte rmittent substernal chest discomfort. The chest discomfort was sharp in nature. Symptoms would improve if he sat and rested, only to return with more exertion. Symptoms eventually resolved at approximately midnight. He felt like these palpitations were similar to his prior atrial flutter and reports only having approximately 2 such episodes in the past year. He woke up at approximately 7:00 a.m. today and then developed substernal sharp chest discomfort with shortness of breath. Symptoms resolved in approximately 1 hour. He then changed his 's car tire and felt weak and tired. [place] was [place] the [place], exercise tolerance had decreased. He wore out more easily but without chest discomfort order definite shortness of breath. This apparently was a new development for him. He was chest pain-free at the time of our visit today. He denies shortness of breath or current palpitations. His initial troponin was 0.051 which trended down to 0.031. There were no dynamic ST changes on ECG. He denies melena, hematochezia, hematuria, stroke, stroke-like symptoms, syncope, near-syncope, or edema. Review of systems: As above. Review of systems otherwise negative/unremarkable. Family history: Brother had MS at age 39 with CABG x 3. Father had colon cancer, hypertension, and dyslipidemia. Social history: He denies smoking or drugs. Occasional alcohol. He is and lives with his , Shannon. She works at [employer]. He has 2 sons. Grandson. He retired from [employer] with [employer]. His was present at the bedside. Allergies Allergy/AdvReac Type Severity Reaction Status Date / Time No Known Allergies Allergy Unknown Verified 08/28/20 10:01 Home Medications Medication Instructions Recorded Confirmed Type fexofenadine 180 mg tablet 180 mg PO DAILY PRN #90 tab 02/10/19 01/23/21 History rivaroxaban 20 mg tablet 20 mg PO QAM #90 tab 04/23/20 01/23/21 Rx blood sugar diagnostic #100 ea 08/28/20 01/23/21 Rx blood-glucose meter #1 ea 08/28/20 01/23/21 Rx dapagliflozin 10 mg tablet 10 mg PO DAILY #30 tab 08/28/20 01/23/21 Rx lancets 30 gauge #100 ea 08/28/20 01/23/21 Rx rosuvastatin 20 mg tablet 20 mg PO DAILY #30 tab 08/28/20 01/23/21 Rx metformin 1,000 mg tablet 1,000 mg PO BID #180 tab 09/10/20 01/23/21 Rx metoprolol succinate 25 mg 25 mg PO QAM #90 tab 09/10/20 01/23/21 Rx tablet,extended release 24 hr lisinopril 20 1 tab PO QAM #90 tab 10/18/20 01/23/21 Rx mg-hydrochlorothiazide 25 mg tablet albuterol sulfate 90 mcg/actuation 2 puff INH QID PRN #8.5 g 11/12/20 01/23/21 Rx aerosol inhaler tamsulosin 0.4 mg capsule 0.4 mg PO QAM #90 cap 11/14/20 01/23/21 Rx lansoprazole 30 mg capsule,delayed 30 mg PO QAM #90 cap 11/16/20 01/23/21 Rx release icosapent ethyl 1 gram capsule 2 g PO BID #120 cap 12/05/20 01/23/21 Rx Patient History Medical History Anticoagulant long-term use Atrial flutter F/U DR DELGADO Barretts esophagus Diabetes Gastroesophageal reflux disease Hiatal hernia Hyperlipidemia Hypertension Leukopenia Mild sleep apnea CPAP Pre-diabetes Temporomandibular joint disorder CLICKS ONE SIDE Surgical History H/O umbilical hernia repair H/O vasectomy History of colonoscopy History of esophagogastroduodenoscopy (EGD) History of myringotomy History of tonsillectomy History of wisdom tooth extraction Family History Father Prostate cancer Colorectal cancer Uncle Prostate cancer Myocardial infarction Colorectal cancer Brother Myocardial infarction Hx of CABG Mother Healthy adult Grandmother (Paternal) Family history of diabetes mellitus Other No family history of adverse response to anesthesia Denies family history of Ovarian cancer Coronary heart disease Breast cancer Social History Smoking Status: Never smoker Tobacco Type: Smokeless Tobacco (Dip or Chew) Second Hand Exposure: No; Hx Alcohol Use: Yes Alcohol type: beer Alcohol Intake Frequency Comment: Occasional social alcohol. 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 Alert and oriented. HEENT: Anicteric sclera. Neck: No JVD. No bruits. Normal carotid upstrokes bilaterally. Cardiac: PMI was nondisplaced. No ventricular heave. Regular rate and rhythm. Normal S1-S2. No murmurs, rubs, or gallops. Pulmonary: Clear to auscultation bilaterally without wheezes, rales, or rhonchi. Abdomen: Soft, nontender, nondistended, with normoactive bowel sounds. No bruits noted. Extremities: 2+ radial pulses bilaterally. 2+ posterior tibialis pulses bilaterally. No edema or cyanosis. Psychiatric: Affect appears appropriate. Results & Data ([facility]) Vital Signs (Past 12 Hours) Vital Signs Temp Pulse Pulse Pulse Resp BP BP 01/23/21 19:48 89 18 123/82 01/23/21 15:29 36.4 C L 64 20 101/62 01/23/21 13:50 36.8 C 74 14 146/80 H 01/23/21 13:47 36.8 C 14 L 14 146/80 H 01/23/21 13:32 69 17 01/23/21 13:00 68 17 124/77 01/23/21 12:30 72 17 117/72 01/23/21 12:00 72 20 112/69 01/23/21 11:30 70 15 109/79 01/23/21 11:14 71 20 122/78 01/23/21 11:00 70 19 122/78 01/23/21 10:30 72 18 123/80 01/23/21 10:00 71 13 139/85 01/23/21 09:30 73 19 112/86 01/23/21 09:01 75 20 01/23/21 09:00 77 15 137/87 01/23/21 08:58 75 25 H 01/23/21 08:53 79 18 120/77 01/23/21 08:40 36.5 C 81 20 127/91 Pulse Ox 01/23/21 19:48 94 01/23/21 15:29 95 01/23/21 13:50 96 01/23/21 13:47 96 01/23/21 13:32 95 01/23/21 13:00 96 01/23/21 12:30 95 01/23/21 12:00 97 01/23/21 11:30 95 01/23/21 11:14 96 01/23/21 11:00 01/23/21 10:30 01/23/21 10:00 01/23/21 09:30 01/23/21 09:01 01/23/21 09:00 01/23/21 08:58 01/23/21 08:53 01/23/21 08:40 98 Laboratory Results Laboratory Results - last 24 hr 01/23/21 01/23/21 01/23/21 09:00 09:00 11:38 WBC 7.03 RBC 4.27 L Hgb 13.0 L Hct 38.2 L MCV 89.5 MCH 30.4 MCHC 34.0 RDW Std Deviation 42.5 RDW Coeff of Bhanu 13.2 Plt Count 240 MPV 9.1 Immature Gran % (Auto) 0.3 Neut % (Auto) 61.1 Lymph % (Auto) 24.8 [place] % (Auto) 10.8 Eos % (Auto) 2.7 Baso % (Auto) 0.3 Neut # (Auto) 4.30 Lymph # (Auto) 1.74 [place] # (Auto) 0.76 H Eos # (Auto) 0.19 Baso # (Auto) 0.02 Immature Gran # (Auto) 0.02 Sodium 133 L Potassium 3.5 Chloride 99 Carbon Dioxide 27 Anion Gap 7.0 BUN 20 H Creatinine 0.95 Est Cr Clr Drug Dosing 106.4 Est GFR ( Amer) 102.6 Est GFR (Non-Af Amer) 88.5 BUN/Creatinine Ratio 20.7 H Glucose 114 H Calcium 8.8 Magnesium 1.9 Total Bilirubin 0.5 AST 31 ALT 60 Alkaline Phosphatase 45 Troponin I 0.051 H* Total Protein 7.8 Albumin 4.1 Globulin 3.7 Albumin/Globulin Ratio 1.1 Lipase 146 TSH 5.360 H COVID-19 Eval Order Covid19 at [facility] SARS-CoV-2 (PCR) 01/23/21 01/23/21 01/23/21 11:38 13:15 18:00 WBC RBC Hgb Hct MCV MCH MCHC RDW Std Deviation RDW Coeff of Bhanu Plt Count MPV Immature Gran % (Auto) Neut % (Auto) Lymph % (Auto) [place] % (Auto) Eos % (Auto) Baso % (Auto) Neut # (Auto) Lymph # (Auto) [place] # (Auto) Eos # (Auto) Baso # (Auto) Immature Gran # (Auto) Sodium Potassium Chloride Carbon Dioxide Anion Gap BUN Creatinine Est Cr Clr Drug Dosing Est GFR ( Amer) Est GFR (Non-Af Amer) BUN/Creatinine Ratio Glucose Calcium Magnesium Total Bilirubin AST ALT Alkaline Phosphatase Troponin I 0.031 0.023 Total Protein Albumin Globulin Albumin/Globulin Ratio Lipase TSH COVID-19 Eval Order SARS-CoV-2 (PCR) NEGATIVE Diagnostic Findings Telemetry personally reviewed: Sinus rhythm in the 60s. ECG 01/23/2021 personally reviewed: NSR. Cannot rule out anterior infarct. Prior event monitor report reviewed as noted above in HPI. Chart reviewed. Chest x-ray 01/23/2021: No acute process Per Radiology. Medications Administered Current Inpatient Medications Acetaminophen (Acetaminophen 325 Mg Tab) 650 mg PO Q4H PRN PRN Reason: Pain or Fever Stop: 02/22/21 13:46 Aspirin (Aspirin 81 Mg Ectab) 81 mg PO QAM [place] Stop: 02/23/21 08:59 Dextrose (Dextrose 50% 50 Ml Syringe) 25 - 50 ml IV UD PRN; Protocol PRN Reason: Hypoglycemia Protocol Stop: 02/22/21 13:46 Glucagon (Glucagon For Inj 1 Mg Vial) 1 mg SQ UD PRN; Protocol PRN Reason: Hypoglycemia Protocol Stop: 02/22/21 13:46 Glucose (Glucose 10 Tabs/Tube) 4 - 8 tabs PO UD PRN; Protocol PRN Reason: Hypoglycemia Protocol Stop: 02/22/21 13:46 Glucose (Glucose 40% Gel 15 Gm Tube) 15 - 30 gm PO UD PRN; Protocol PRN Reason: Hypoglycemia Protocol Stop: 02/22/21 13:46 Lisinopril/HCTZ (Lisinopril/Hctz 20/25mg 1 Tab) 1 tab PO QAM [place] Stop: 02/23/21 08:59 Metoprolol Succinate (Metoprolol Succ 25mg Ext Rel Tab) 25 mg PO BID [place] Stop: 02/22/21 20:59 Miscellaneous (Icosapent Ethyl [Vascepa] 1 Gram Capsule~Order Awaiting Action) 1 ea N/A QS [place] Stop: 02/22/21 15:59 Last Admin: 01/23/21 17:34 Dose: Not Given Documented by: Nitroglycerin (Nitroglycerin Sl 0.4 Mg/Tab Tab) 0.4 mg SL UD PRN PRN Reason: Chest Pain Stop: 02/22/21 13:46 Ondansetron HCl (Ondansetron Inj 2 Mg/Ml 2 Ml Vial) 4 mg IV Q6H PRN PRN Reason: Nausea Stop: 02/22/21 13:46 Pantoprazole Sodium (Pantoprazole 40 Mg Tab) 40 mg PO QAM [facility]; Protocol Stop: 02/23/21 08:59 Rosuvastatin Calcium (Rosuvastatin Calcium 20 Mg Tab) 20 mg PO DAILY [facility] Stop: 02/23/21 08:59 Tamsulosin HCl (Tamsulosin Hcl 0.4 Mg Cap) 0.4 mg PO QAM [facility] Stop: 02/23/21 08:59 PG Care Time/CCT Total # of Minutes Spent Total Time Spent with Patient: Total time spent is greater than 50% in coordination of care (as documented) at patient's floor/unit and/or counseling patient: Coding Level of Care Code 64477 Office/OBS Consult Lvl 4 Diagnoses Chest pain R07.9 Paroxysmal atrial flutter I48.92 Elevated troponin R77.8 Palpitations R00.2 Hypertension I10
--- NOTE | 2021-01-23 20:48 | XCELERA ---
[id number]
[2021-01-23] MEDS: METOPROLOL SUCC 25MG EXT REL TAB PO SCH (21:30)
--- NOTE | 2021-01-24 06:36 | Electrocardiogram Report ---
Test Reason : Blood Pressure : / mmHG Vent. Rate : 074 BPM Atrial Rate : 074 BPM P-R Int : 152 ms QRS Dur : 106 ms QT Int : 394 ms P-R-T Axes : 011 000 039 degrees QTc Int : 437 ms Poor data quality, interpretation may be adversely affected Normal sinus rhythm Cannot rule out Anterior infarct , age undetermined Abnormal ECG When compared with ECG of 03-JAN-2015 06:22, Questionable change in QRS duration Confirmed by Tono Siegel ([id number]) on 01/24/2021 6:35:54 AM Referred By: Confirmed By:Tono Siegel
[2021-01-24] MEDS ORDERED: Nursing to Pharmacy Communication SCH (07:15)
[2021-01-24] MEDS: METOPROLOL SUCC 25MG EXT REL TAB PO SCH (08:07)
[2021-01-24] MEDS ORDERED: ASPIRIN 81 MG ECTAB PO SCH (09:00)
[2021-01-24] MEDS ORDERED: TAMSULOSIN HCL 0.4 MG CAP PO SCH (09:00)
[2021-01-24] MEDS ORDERED: LISINOPRIL/HCTZ 20/25MG 1 TAB PO SCH (09:00)
[2021-01-24] MEDS ORDERED: ROSUVASTATIN CALCIUM 20 MG TAB PO SCH ×2 (09:00→21:00)
[2021-01-24] MEDS ORDERED: PANTOprazole 40 MG TAB PO SCH (09:00)
--- NOTE | 2021-01-24 16:01 | Cardiology Progress Note ---
Date of Service January 24, 2021 Assessment & Plan (1) Chest pain: (2) Paroxysmal atrial flutter: (3) Elevated troponin: (4) Palpitations: (5) Hypertension: ASSESSMENT/PLAN: 1. Chest pain: Chest pain was atypical, occurring at rest the morning of presentation and then with palpitations the evening before. He did not rule in for myocardial infarction. Negative myocardial perfusion study for ischemia and good exercise tolerance on exercise stress. No further ischemic evaluation nece ssary at this time. 2. Paroxysmal atrial flutter: 1 documented episode in 2015. Unclear if his most recent palpitations represented atrial flutter although felt similar to him. Continue beta-asya. Can continue anticoagulation for stroke risk reduction. Recommend loop recorder as an outpatient as he has had 2 more significant episodes of palpitations in the past year which reminded him of prior atrial flutter. If significant recurrent atrial flutter burden, could consider atrial flutter ablation. 3. Elevated troponin: Very minimally elevated troponin on presentation which has since trended downward. May have been due to possible tachyarrhythmia the evening before. Unremarkable myocardial perfusion study. 4. Palpitations: Will consider loop recorder as above. Palpitations in the past have correlated with atrial flutter and during event monitors as an outpatient, PACs and even normal sinus rhythm in 2015. 5. Hypertension: Blood pressure well controlled. Continue current regimen. 6. Disposition: Loop recorder as an outpatient. Has follow-up appointment with cardiology in February. Keep scheduled appointment. Patient care communicated with Dr. Osborn of the primary hospitalist service. Admission and Anticipated Discharge Date Admission Date: January 23, 2021 Subjective No further chest discomfort. Denies shortness of breath, syncope, near-syncope, palpitations, edema, or bleeding. He underwent myocardial perfusion study earlier today and tolerated 9 minutes on Cayetano protocol without chest pain . His was present at the bedside for second discussion today, following his stress test. Review of systems: As above. Physical Exam Physical Exam: Gen.: No acute distress. Alert and oriented. HEENT: Anicteric sclera. Neck: No JVD. Cardiac: No ventricular heave. Regular rate and rhythm. Normal S1-S2. No murmurs, rubs, or gallops. Pulmonary: Clear to auscultation bilaterally without wheezes, rales, or rhonchi. Abdomen: Soft, nontender, nondistended, with normoactive bowel sounds. No bruits noted. Extremities: 2+ radial pulses bilaterally. No edema or cyanosis. Psychiatric: Affect appears appropriate. Results & Data ([facility]) Vital Signs (Past 12 Hours) Vital Signs Temp Pulse Pulse Resp BP BP Pulse Ox 01/24/21 15:05 36.5 C 67 18 111/73 96 01/24/21 07:17 55 L 01/24/21 07:07 36.5 C 59 L 18 115/74 96 Laboratory Results Laboratory Results - last 24 hr 01/23/21 01/23/21 01/24/21 18:00 21:27 06:59 POC Glucose 112 H 105 H Troponin I 0.023 01/24/21 11:00 POC Glucose 112 H Troponin I Diagnostic Findings Telemetry personally reviewed: Sinus rhythm. No arrhythmia noted. Myocardial perfusion study reviewed: No significant ischemia suggested. Negati ve exercise stress ECG. Good exercise tolerance. Medications Administered Current Inpatient Medications Acetaminophen (Acetaminophen 325 Mg Tab) 650 mg PO Q4H PRN PRN Reason: Pain or Fever Stop: 02/22/21 13:46 Aspirin (Aspirin 81 Mg Ectab) 81 mg PO QAM [facility] Stop: 02/23/21 08:59 Last Admin: 01/24/21 08:06 Dose: 81 mg Documented by: Dextrose (Dextrose 50% 50 Ml Syringe) 25 - 50 ml IV UD PRN; Protocol PRN Reason: Hypoglycemia Protocol Stop: 02/22/21 13:46 Glucagon (Glucagon For Inj 1 Mg Vial) 1 mg SQ UD PRN; Protocol PRN Reason: Hypoglycemia Protocol Stop: 02/22/21 13:46 Glucose (Glucose 10 Tabs/Tube) 4 - 8 tabs PO UD PRN; Protocol PRN Reason: Hypoglycemia Protocol Stop: 02/22/21 13:46 Glucose (Glucose 40% Gel 15 Gm Tube) 15 - 30 gm PO UD PRN; Protocol PRN Reason: Hypoglycemia Protocol Stop: 02/22/21 13:46 Lisinopril/HCTZ (Lisinopril/Hctz 20/25mg 1 Tab) 1 tab PO QAM [facility] Stop: 02/23/21 08:59 Last Admin: 01/24/21 08:08 Dose: Not Given Documented by: Metoprolol Succinate (Metoprolol Succ 25mg Ext Rel Tab) 25 mg PO BID [facility] Stop: 02/22/21 20:59 Last Admin: 01/24/21 08:07 Dose: Not Given Documented by: Miscellaneous (Icosapent Ethyl [Vascepa] 1 Gram Capsule~Order Awaiting Action) 1 ea N/A QS [facility] Stop: 02/22/21 15:59 Last Admin: 01/24/21 08:09 Dose: Not Given Documented by: Nitroglycerin (Nitroglycerin Sl 0.4 Mg/Tab Tab) 0.4 mg SL UD PRN PRN Reason: Chest Pain Stop: 02/22/21 13:46 Ondansetron HCl (Ondansetron Inj 2 Mg/Ml 2 Ml Vial) 4 mg IV Q6H PRN PRN Reason: Nausea Stop: 02/22/21 13:46 Pantoprazole Sodium (Pantoprazole 40 Mg Tab) 40 mg PO QAM [facility]; Protocol Stop: 02/23/21 08:59 Last Admin: 01/24/21 08:06 Dose: 40 mg Documented by: Rosuvastatin Calcium (Rosuvastatin Calcium 20 Mg Tab) 20 mg PO HS [facility] Stop: 02/23/21 20:59 Tamsulosin HCl (Tamsulosin Hcl 0.4 Mg Cap) 0.4 mg PO QAM [facility] Stop: 02/23/21 08:59 Last Admin: 01/24/21 08:06 Dose: 0.4 mg Documented by: PG Care Time/CCT Total # of Minutes Spent Total Time Spent with Patient: Total time spent is greater than 50% in coordination of care (as documented) at patient's floor/unit and/or counseling patient: Coding Level of Care Code 12323 Office/Outpt Visit, Est Diagnoses Chest pain R07.9 Paroxysmal atrial flutter I48.92 Elevated troponin R77.8 Palpitations R00.2 Hypertension I10
--- NOTE | 2021-01-24 17:09 | Discharge Summary ---
Date of Service January 24, 2021 Admission HPI Per Admitting Provider 55 y/o M Hx HTN, HLD, DM II, GERD, BPH, CAROLINE, PAF. 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 He believed this to be an episode of atrial flutter which he states he has not had since 2014. He waited it out and it returned home. This AM he was changing a tire on his car and developed CP and nausea, but without palpitations. He presented to the ER therefore. On arrival, he is in a sinus rhythm. There was no evidence of ischemia on his EKG. His initial troponin did however return +. He is asymptomatic on admission and labs are otherwise at baseline. PMH: 1) HTN 2) HLD 3) DM II 4) GERD 5) BPH 6) Mild anemia - baseline Hb 13 7) Paroxysmal flutter - takes Xarelto 8) Seasonal airway reactive disease 9) Obese 10) CAROLINE - CPAP Surgical: No recent surgery Social: Occasional ETOH, chews tobacco. 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 Family: Father alive - history of colon and prostate CA, history of CAD Mother alive - healthy Admission Exam Per Admitting Provider General: Pleasant, middle-aged M, AAO x 3, no distress ENT: No erythema or exudates, no thrush Eyes: ALESSIA, EOMI Head and neck: Normocephalic, atraumatic, No JVD, neck is supple. Chest/heart: Nontender, S1,2, RRR, no murmurs, no gallops Lungs: CTAB, no wheezing or crackles Abdomen: Nontender, nondistended, BS+ Neuro: AAO x 3, speech is clear, no unilateral weakness or loss of sensation, coordination intact Musculoskeletal: No joint inflammation, muscle tenderness, FROM Skin: No acute rashes or ulcers Extremities: No clubbing, cyanosis, edema Principal Diagnosis Suspected tachyarrhythmia Discharge Exam Constitutional WD/WN, vitals as above Eyes + anicteric sclerae; normal pupil size ENMT external ear and nose normal, oropharynx normal Neck trachea midline, no thyromegaly Respiratory normal respiratory effort, lungs clear to auscultation Cardiovascular RRR, no murmur, no edema Musculoskeletal no cyanosis or clubbing, extremities motor strength 5/5 Skin no rashes, warm and dry Neurologic moves all extremities and awake; not confused Psychiatric A+Ox3, euthymic affect Discharge Data Allergies Allergy/AdvReac Type Severity Reaction Status Date / Time No Known Allergies Allergy Unknown Verified 01/29/21 09:15 Consultations 01/23/21 11:14 ED Decision to Admit Stat 01/23/21 13:47 Consult Cardiology Routine Hospital Course (1) Non-ST elevation (NSTEMI) myocardial infarction: Reynold White is a 55 year old male observed overnight at [facility] from January 23-2020 due to chest pain and palpitations. No arrhythmias seen on telemetry, chest pain did not recur while on a quality assurance monitor final. Nuclear medicine stress was negative for inducible ischemia. Initial troponin mildly elevated suspect secondary to a fast abnormal rhythm heart rate (?paroxysmal atrial flutter). He will follow up with cardiology for consideration of a loop recorder for ongoing management of this. (2) Dyslipidemia: (3) Paroxysmal atrial flutter: (4) Diabetes: (5) Hyperlipidemia: (6) Hypertension: (7) Mild sleep apnea: Total Time Total Time Spent Total Time Spent (In Minutes): 45 Discharge Plan Discharge Items Patient Disposition: Home - Self-Care Reason For Visit: CP Discharge Diagnosis: Suspected tachyarrhythmia Activity: Resume your previous activity Non-emergency contact: Jboss Developer Call non-emergency contact if: you have any medication questions and your symptoms worsen Follow-up/Referrals: Luis Holland MD [Primary Care Provider] - 01/31/21 Tono Siegel MD [Physician] - (Follow up to be arranged for loop recorder) Diet: Carb Consistent or DM2 and Heart Healthy Addtl Attending Provider Instructions: You are observed overnight at [facility] from January 232020 due to chest pain and palpitations. No arrhythmias seen on telemetry of your symptoms did not recur while on a quality assurance monitor final. Nuclear medicine stress was negative for inducible ischemia. Initial troponin mildly elevated suspect secondary to a fast abnormal rhythm heart rate. For further investigation of this please follow-up with cardiology for loop recorder. You will be called regarding arrangements for this however if you do not hear anything over the next week please call the cardiology office number above. Kind regards, Dr Musa Irena Pending Studies at Discharge: No Stand-Alone Forms: My [facility] bettermarks, Smoking Cessation Medications and DC Order Prescriptions: Continued Xarelto 20 mg tablet 20 mg PO QAM Qty: 90 RF: 3 (DME) lancets [OneTouch Delica Plus Lancet] 30 gauge misc See Rx Instructions .ROUTE .MEDSUPPLY Qty: 100 RF: 3 metformin 1,000 mg tablet 1,000 mg PO BID Qty: 180 RF: 3 metoprolol succinate 25 mg tablet extended release 24 hr 25 mg PO QAM Qty: 90 RF: 3 lisinopril-hydrochlorothiazide 20-25 mg tablet 1 tab PO QAM Qty: 90 RF: 3 albuterol sulfate [Proventil HFA] 90 mcg/actuation HFA aerosol inhaler 2 puff INH QID PRN (Reason: shortness of breath or wheezing) Qty: 8.5 RF: 1 tamsulosin 0.4 mg capsule 0.4 mg PO QAM Qty: 90 RF: 0 lansoprazole 30 mg capsule,delayed release(DR/EC) 30 mg PO QAM Qty: 90 RF: 3 icosapent ethyl [Vascepa] 1 gram capsule 2 g PO BID Qty: 120 RF: 11 fexofenadine 180 mg tablet 180 mg PO DAILY PRN (Reason: Allergy Symptoms) Qty: 90 RF: 0 Farxiga 10 mg tablet 10 mg PO DAILY Qty: 30 RF: 11 (DME) blood-glucose meter [OneTouch Verio Flex meter] Misc See Rx Instructions .ROUTE .MEDSUPPLY Qty: 1 RF: 0 rosuvastatin 20 mg tablet 20 mg PO DAILY Qty: 30 RF: 11 No Action (DME) OneTouch Verio test strips Strip See Rx Instructions .ROUTE .MEDSUPPLY Qty: 100 RF: 3 Discharge Orders: Discharge Order (Routine); Ordered 01/24/21 Ordered By: Musa Larry/Other Patient Handouts: Discharge Instructions for Angina, Having Loop Recorder Implantation Admission Data Admit Date/Time: 01/23/21 10:57 Attending Provider: Musa Osborn Admit Provider: Edmundo Olson Primary Care Provider: Luis Holland Other Providers: Tono Siegel Other Interventions: Discharge Summary Assessment (RN) Last Done: 01/24/21 17:30 Coding Level of Care Code 05532 OBS Care - Discharge Diagnoses Non-ST elevation (NSTEMI) myocardial infarction I21.4 Dyslipidemia E78.5 Paroxysmal atrial flutter I48.92 Diabetes E11.9 Hyperlipidemia E78.5 Hypertension I10 Mild sleep apnea G47.30
--- NOTE | 2021-01-25 20:56 | Myocardial Perfusion Study ---
Date of Service January 24, 2021 Myocardial Perfusion Study [facility] Myocardial Perfusion Study Report Procedure: 1. Myocardial perfusion study performed in multiple views/images 2. Exercise (treadmill) stress ECG Indications: 1. Chest pain 2. Minimally Elevated troponin Ordering physician: Robbin Procedural details: For the stress portion of the study, 33.2 mCi of technetium 99m Cardiolite was injected at 1:25 p.m. on 01/24/2021. 15 minutes following the injection, imaging of the heart was performed in multiple projections. For the rest portion of the study, 11 mCi technetium 99m Cardiolite was injected intravenously at 11:35 a.m. on 01/24/2021. 1 hour following the injection, imaging of the heart was performed in the same projections. Exercise stress ECG: Continuous ECG monitoring was performed with supervision and interpretation. Exercise Protocol: Cayetano Resting ECG demonstrated: Sinus rhythm 74 beats per minute. Incomplete RBBB. Poor R-wave progression. Maximum heart rate: 144 bpm Maximal, age-predicted heart rate: 88 % Resting blood pressure: 132/80 mmHg Maximum blood pressure: 210/[address] changes: None Arrhythmia: None Symptoms: Fatigue METS: 10.4 Findings: Rotating raw imaging demonstrated no significant lung uptake. There is no significant motion artifact. Heart size appeared normal. Myocardial perfusion demonstrated a small area of mildly reduced uptake involving the base to mid inferior wall which appeared fixed in post stress and rest imaging. There were no significant reversible defects to suggest ischemia. Ejection fraction: 59 % Wall motion: Normal No significant transient ischemic dilation. Impression: 1. Negative myocardial perfusion study for ischemia. 2. Negative exercise stress ECG for ischemia at 88% MPHR. 3. Normal wall motion and LV systolic function. EF 59%. 4. Small inferior fixed defect may represent diaphragmatic attenuation given normal wall motion. 5. No chest pain. 6. No arrhythmia. 7. Hypertensive response to exercise. 8. Good exercise tolerance. MNP Myocardial perfusion code Procedure Code Procedure 1: Myocardial Perfusion Codes: 63177 Cardiovascular Stress Test, multiple Procedure 2: Myocardial Perfusion Codes: 39048 Cardiovascular Stress Test, supervision only Procedure 3: Myocardial Perfusion Codes: 85536 Cardiovascular Stress Test, interpretation and report
== END 2021-01-24 17:49 | disposition home or self-care (01) ==
LOC: 2S 08:37 → ED 08:37 → SUATTDRO 10:57 → 2S 13:20
DX: Z79.01 Long term (current) use of anticoagulants; R79.89 Other specified abnormal findings of blood chemistry; Z20.822 Contact with and (suspected) exposure to COVID-19; I48.92 Unspecified atrial flutter; Z79.84 Long term (current) use of oral hypoglycemic drugs; I10 Essential (primary) hypertension; Z99.89 Dependence on other enabling machines and devices; Z79.899 Other long term (current) drug therapy; F17.220 Nicotine dependence, chewing tobacco, uncomplicated; G47.33 Obstructive sleep apnea (adult) (pediatric); I21.4 Non-ST elevation (NSTEMI) myocardial infarction; E11.9 Type 2 diabetes mellitus without complications; F17.200 Nicotine dependence, unspecified, uncomplicated; R00.2 Palpitations; N40.0 Benign prostatic hyperplasia without lower urinary tract symptoms; E78.5 Hyperlipidemia, unspecified; K21.9 Gastro-esophageal reflux disease without esophagitis